=== PATIENT | female | born 1965 | race Caucasian/White ===

== ENCOUNTER 2016-10-02 14:04 | Day surgery (SDC) | payer OTHER ==
[~2016-10-02] VITALS: Ht 154.9 cm; Wt 51.7 kg
[2016-10-02] MEDS ORDERED: LACT1CAP56 PO (14:50)
[2016-10-02 14:54] VITALS: Ht 154.9 cm; Wt 51.7 kg
[2016-10-02 15:04] VITALS: BP 128/60; PULSE 81; RESP 18
[2016-10-02] MEDS ORDERED: FENTAnyl 50 MCG/ML VIAL ONE ×2 (15:43→15:44)
[2016-10-02] MEDS ORDERED: MIDAZOLAM 1 MG/ML 2 ML INJ ONE ×3 (15:44)
--- NOTE | 2016-10-02 15:58 | GILP ---
DATE OF PROCEDURE: 10/02/2016 NAME OF PROCEDURES: 1. Esophagogastroduodenoscopy and biopsy. 2. Colonoscopy. SURGEON: Haresh Estrada MD PREOPERATIVE DIAGNOSES: 1. Abdominal pain. 2. Chronic heartburn. 3. Screening colonoscopy. POSTOPERATIVE DIAGNOSES: 1. Gastroesophageal reflux disease. 2. Gastritis with erosions. 3. Gastric mucosal biopsies were taken for Helicobacter pylori test. 4. Colonoscopy all the way to the cecum. 5. Internal hemorrhoids. 6. No colon neoplasm was identified. INDICATION FOR THE PROCEDURE: Ms. Lorena Mccollum is a 51-year-old female patient who had upper a bdominal pain and chronic heartburn, not responding to therapy. The patient also noticed a change i n the bowel habit. She never had a screening colonoscopy, so the patient was scheduled for endoscop y and colonoscopy for further evaluation. The procedures and possible complications were well explained to the patient, she understood and con sented to the procedure. DESCRIPTION OF PROCEDURE: Under the influence of fentanyl and Versed, the gastroscope was carefully introduced into the esophagus and under direct vision, it was advanced to the stomach and through t he pylorus into the duodenal bulb and descending duodenum. FINDINGS: ESOPHAGUS: The patient had gastroesophageal reflux disease. STOMACH: She had gastritis with erosions. Gastric mucosal biopsies were taken for H. pylori test. DUODENUM: Normal. The colonoscope was carefully introduced in the rectum and under direct vision, it was advanced all the way to the cecum. FINDINGS: The patient had internal hemorrhoids. No colon neoplasm was identified. She tolerated the procedures very well and there was no complication from the procedures. At the en d of the procedures, she was awake with stable vital signs and she was discharged home to the care o f her family. IMPRESSION: 1. Gastroesophageal reflux disease. 2. Gastritis with erosions. 3. Gastric mucosal biopsies were taken for Helicobacter pylori test. 4. Colonoscopy all the way to the cecum. 5. Internal hemorrhoids. 6. No colon neoplasm was identified. PLAN: 1. Pantoprazole 40 mg p.o. q.a.m. 2. MiraLax 17 grams dissolved in a glass of water p.o. daily. 3. Await H. pylori test report. 4. Next screening colonoscopy in 10 years. Dictated By: HARESH PARRISH/KAROL Conf#: [id number] DID#: [id number] CC: HARESH ESTRADA MD;*[facility]*
[2016-10-02 16:00] VITALS: BP 100/54; PULSE 72; RESP 15
== END 2016-10-02 16:53 | disposition home or self-care (01) ==
LOC: GIL 14:04
PROVIDERS: ATTEND Internal Medicine Gastroenterology
DX: Z12.11 Encounter for screening for malignant neoplasm of colon (principal); K21.9 Gastro-esophageal reflux disease without esophagitis; K29.60 Other gastritis without bleeding; K64.8 Other hemorrhoids
CPT/HCPCS: 43239; 45378; 87081; J2250; J3010